=== PATIENT | female | born 1985 | race Caucasian/White ===

== ENCOUNTER 2019-12-04 15:58 | Emergency (ER) | payer SELFPAY ==
[2019-12-04] MEDS ORDERED: Sodium Chloride 0.9% 10 ML Syringe FLUSH PRN (16:01)
--- NOTE | 2019-12-04 16:24 | EDM.PDOC ---
ED HPI GENERAL MEDICAL PROBLEM - General Chief Complaint: Neck Problem Stated Complaint: SENT FROM CLINIC Time Seen by Provider: 12/04/19 16:19 Source of Information: Reports: Patient, Provider, RN History Limitations: Reports: Language Barrier (interpretor used) - History of Present Illness INITIAL COMMENTS - FREE TEXT/NARRATIVE: 34 yo Thai speaking female presented to the clinic today with a complaint of neck pain for a week. She also mentioned some pain on the R side of her scalp. The neck pain has been primarily on the R side. No injury recalled. No vomiting. Was not aware of having a fever at any time during this time. Today she presented to the clinic where they measured a temp of 101F and became worried this could be Covid or meningitis and sent her to the ER. Onset Date: 11/27/19 Duration: Week(s): (1), Constant Location: Reports: Neck Quality: Reports: Ache Severity: Moderate Improves with: Reports: Rest Worsens with: Reports: Movement Context: Reports: Other (See HPI) Associated Symptoms: Reports: Headaches (R side of scalp ). Denies: Fever/ Chills, Nausea/Vomiting Neck Pain Score (Numeric/FACES): 9 - Related Data Allergies Allergy/AdvReac Type Severity Reaction Status Date / Time No Known Allergies Allergy Verified 12/04/19 16:29 Home Meds: Home Meds Cyclobenzaprine [Flexeril] 5 - 10 mg PO TID PRN #14 tab 12/04/19 [Rx] Ibuprofen [Advil] 600 mg PO ASDIRECTED PRN 12/04/19 [History] ED ROS GENERAL - Review of Systems Review Of Systems: See Below Constitutional: Reports: No Symptoms. Denies: Fever, Chills HEENT: Denies: Ear Pain, Eye Pain (no photophobia), Throat Pain Respiratory: Reports: No Symptoms Cardiovascular: Reports: No Symptoms GI/Abdominal: Reports: No Symptoms. Denies: Nausea, Vomiting : Reports: No Symptoms Musculoskeletal: Reports: Neck Pain (R sided), Back Pain (upper R back) Skin: Reports: No Symptoms Neurological: Reports: Headache (mild) ED EXAM, UPPER BACK/NECK PAIN - Physical Exam Exam: See Below Exam Limited By: No Limitations General Appearance: Alert, WD/WN, No Apparent Distress Eye Exam: Right Eye: Bleeding, Bilateral Eye: EOMI, Normal Inspection, PERRL, Other (no photophobia) Ears Exam: Normal External Exam, Normal Canal, Hearing Grossly Normal, Normal TMs Nose Exam: Normal Inspection, No Blood. No: Clear Rhinorrhea Throat/Mouth Exam: Normal Inspection, Normal Lips, Normal Oropharynx, Normal Voice, No Airway Compromise Head Exam: Atraumatic, Normocephalic Neck Exam: Normal Alignment, Normal Inspection, Limited Range of Motion, Painful Range of Motion, Tender Lateral (R trapezius distribution). 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 nml As Tested, No Motor/Sensory Deficits, Alert, Normal Mood/Affect, Oriented x 3 Psychiatric: Normal Affect, Normal Mood Skin Exam: Normal Color, Warm/Dry Lymphatic: No Adenopathy Course - Vital Signs Last Recorded V/S: Last Vital Signs Temp 36.7 C 12/04/19 16:10 Pulse 80 12/04/19 16:10 Resp 16 12/04/19 16:10 BP 113/84 12/04/19 16:10 Pulse Ox 100 12/04/19 16:10 - Orders/Labs/Meds Orders: Active Orders 24 hr Category Date Time Status CORONAVIRUS COVID-19 PCR PHL Stat Lab 12/04/19 16:01 Ordered CULTURE BLOOD [BC] Stat Lab 12/04/19 16:40 Received CULTURE BLOOD [BC] Stat Lab 12/04/19 16:45 Received Sodium Chloride 0.9% [Saline Flush] Med 12/04/19 16:01 Active 10 ml FLUSH ASDIRECTED PRN Saline Lock Insert [OM.PC] Routine Oth 12/04/19 16:01 Ordered Medication Orders Sodium Chloride (Saline Flush) 10 ml FLUSH ASDIRECTED PRN PRN Reason: Keep Vein Open Labs: Laboratory Tests 12/04/19 12/04/19 Range/Units 16:40 16:40 WBC 6.4 (4.5-12.0) X10-3/uL RBC 4.56 (3.23-5.20) x10(6)uL Hgb 13.0 (11.5-15.5) g/dL Hct 40.5 (30.0-51.3) % MCV 88.7 (80-96) fL MCH 28.4 (27.7-33.6) pg MCHC 32.1 L (32.2-35.4) g/dL RDW 13.6 (11.5-15.5) % Plt Count 351 (125-369) X10(3)uL Sodium 139 (135-145) mmol/L Potassium 3.8 (3.5-5.3) mmol/L Chloride 103 (100-110) mmol/L Carbon Dioxide 28 (21-32) mmol/L BUN 12 (7-18) mg/dL Creatinine 0.6 (0.55-1.02) mg/dL Est Cr Clr Drug Dosing 116.64 mL/min Estimated GFR (MDRD) > 60 (>60) BUN/Creatinine Ratio 20.0 (9-20) Glucose 84 (80-116) mg/dL Calcium 9.4 (8.6-10.2) mg/dL Meds: Medications Generic Name Dose Route Start Last Admin Trade Name Freq PRN Reason Stop Dose Admin Sodium Chloride 10 ml 12/04/19 16:01 Saline Flush FLUSH ASDIRECTED PRN Keep Vein Open Discontinued Medications Generic Name Dose Route Start Last Admin Trade Name Freq PRN Reason Stop Dose Admin Cyclobenzaprine HCl 10 mg 12/04/19 16:43 12/04/19 16:50 Flexeril PO 12/04/19 16:44 10 mg ONETIME ONE Administration Ketorolac Tromethamine 60 mg 12/04/19 16:43 12/04/19 16:50 Toradol IM 12/04/19 16:44 60 mg ONETIME ONE Administration Departure - Departure Time of Disposition: 17:26 Disposition: Home, Self-Care 01 Condition: Good Clinical Impression: Trapezius muscle strain Qualifiers: Encounter type: initial encounter Laterality: right Qualified Code(s): S46.811A - Strain of other muscles, fascia and tendons at shoulder and upper arm level, right arm, initial encounter - Discharge Information *PRESCRIPTION DRUG MONITORING PROGRAM REVIEWED*: No *COPY OF PRESCRIPTION DRUG MONITORING REPORT IN PATIENT JOHAN: No Prescriptions: Cyclobenzaprine [Flexeril] 5 - 10 mg PO TID PRN #14 tab PRN Reason: Muscle Spasm Instructions: Muscle Strain, [id number] Forms: ED Department Discharge, ED Return to Work/School Form Additional Instructions: Take ibuprofen 600 mg every 6 hrs with food for pain relief, next dose after 10 pm tonight. Acetaminophen up to 1000 mg every 6 hrs for additional pain relief. No lifting with the right hand/arm until your pain is completely gone. Apply either moist heat or rub in topical creams like Karel-Hurley, or other similar products several times per day(consult your pharmacist for options). Recheck if not noticing significant improvement by the then end of the week with your doctor. You may take Flexeril 5-10 mg every 8 hrs for muscle relaxation. This product may cause drowsiness so don't drive when taking it. Sepsis Event Note (ED) - Focused Exam Vital Signs: Vital Signs Temp Pulse Resp BP Pulse Ox 12/04/19 16:10 36.7 C 80 16 113/84 100 - My Orders Last 24 Hours: My Active Orders 12/04/19 16:01 CORONAVIRUS COVID-19 PCR PHL Stat Sodium Chloride 0.9% [Saline Flush] 10 ml FLUSH ASDIRECTED PRN Saline Lock Insert [OM.PC] Routine 12/04/19 16:40 CULTURE BLOOD [BC] Stat 12/04/19 16:45 CULTURE BLOOD [BC] Stat - Assessment/Plan Last 24 Hours: My Active Orders 12/04/19 16:01 CORONAVIRUS COVID-19 PCR PHL Stat Sodium Chloride 0.9% [Saline Flush] 10 ml FLUSH ASDIRECTED PRN Saline Lock Insert [OM.PC] Routine 12/04/19 16:40 CULTURE BLOOD [BC] Stat 12/04/19 16:45 CULTURE BLOOD [BC] Stat
[2019-12-04] MEDS ORDERED: Ketorolac 60 MG/2 ML SDV IM ONE (16:43)
[2019-12-04] MEDS ORDERED: Cyclobenzaprine 10 MG Tab PO ONE (16:43)
== END 2019-12-04 17:45 | disposition home or self-care (01) ==
LOC: FB.ED 15:58
DX: S46.811A Strain of other muscles, fascia and tendons at shoulder and upper arm level, right arm, initial encounter (principal); Z20.828 Contact with and (suspected) exposure to other viral communicable diseases; X58.XXXA Exposure to other specified factors, initial encounter
CPT/HCPCS: 36415; 80048; 85027; 87040; 87635; 96372; 99283; A9270; J1885; U0002